=== PATIENT | male | born 1990 | race Caucasian/White ===

== ENCOUNTER 2022-01-08 21:55 | Emergency (ER) | payer MEDICAID ==
[~2022-01-08] VITALS: Ht 165.1 cm; Wt 63.5 kg
[2022-01-08 23:09] VITALS: BP 129/74
[2022-01-08] MEDS ORDERED: IBUPROFEN 600 MG TABLET ONE (23:17)
[2022-01-08] MEDS ORDERED: IBUPROFEN 600 MG TABLET PO ONE (23:30)
--- NOTE | 2022-01-09 01:00 | NUR ---
Patient discharged to home in stable condition. Written and verbal after care instructions given. Patient verbalizes understanding of instruction. Pt ambulatory with a steady gait
== END 2022-01-09 01:19 | disposition home or self-care (01) ==
LOC: ER 21:58
DX: S46.211A Strain of muscle, fascia and tendon of other parts of biceps, right arm, initial encounter (principal); F17.200 Nicotine dependence, unspecified, uncomplicated; V00.131A Fall from skateboard, initial encounter; Y93.51 Activity, roller skating (inline) and skateboarding; Y92.89 Other specified places as the place of occurrence of the external cause; Y99.8 Other external cause status
CPT/HCPCS: 73080-TC; 73090-TC; 73110